=== PATIENT | male | born 1945 | race Caucasian/White ===

== ENCOUNTER 2017-02-23 07:53 | Day surgery (SDC) | payer MEDICARE ==
[~2017-02-23 07:53] MED LIST: IV START KIT ONE; LACTATED RINGERS 1,000 ML ONE
[2017-02-23] MEDS ORDERED: CEFAZOLIN SODIUM 2 GRAM PREMIX 100 ML IV PRN (08:00)
[2017-02-23] MEDS ORDERED: GENTAMICIN SULFATE 320 MG in SODIUM CHLORIDE 0.9% 100 ML IV PRN (08:00)
[2017-02-23] MEDS ORDERED: OPIUM/BELLADONNA ALKALOIDS 1 EACH SUP PR ONE (08:19)
[2017-02-23] MEDS ORDERED: CEFAZOLIN SODIUM 2 GRAM PREMIX 100 ML IV ONE (08:49)
[2017-02-23] MEDS ORDERED: SUCCINYLCHOLINE CHL 20 MG/ML DOSE ONE (08:51)
[2017-02-23] MEDS ORDERED: PROPOFOL 20 ML IV ONE ×2 (08:51→09:56)
[2017-02-23] MEDS ORDERED: IOPAMIDOL 300 (61%) 30 ML SDV ONE (08:52)
[2017-02-23] MEDS ORDERED: ROCURONIUM BROMIDE 10 MG/ML DOSE IV ONE ×2 (08:52→08:53)
[2017-02-23] MEDS ORDERED: LIDOCAINE 1% (PRES FREE) 30 ML VIAL ONE (08:52)
[2017-02-23] MEDS ORDERED: SODIUM CHLORIDE 0.9% 50 ML ONE (08:52)
[2017-02-23] MEDS ORDERED: DEXAMETHASONE SOD PHOS 4 MG/1 ML VIAL ONE (08:53)
[2017-02-23] MEDS ORDERED: ONDANSETRON 4 MG/2ML 2 ML VIAL ONE (08:53)
[2017-02-23] MEDS ORDERED: FENTANYL 100 MCG/2 ML VIAL ONE ×2 (08:55→10:00)
[2017-02-23] MEDS ORDERED: SCOPOLAMINE 1.5 MG/72 HR 1 EACH PATCH TD ONE (09:12)
[2017-02-23] MEDS ORDERED: EPHEDRINE SULFATE UD SYR 25 MG 25 MG/5 ML SYRINGE IV ONE (09:39)
[2017-02-23] MEDS ORDERED: NEOSTIGMINE METHYLSULFATE 1 MG/ML DOSE ONE (09:52)
[2017-02-23] MEDS ORDERED: GLYCOPYRROLATE 0.2 MG/ML 1ML VIAL ONE (09:52)
[2017-02-23] MEDS ORDERED: MEPERIDINE 25 MG/ML SYRINGE IV PRN (10:09)
[2017-02-23] MEDS ORDERED: HYDROMORPHONE HCL 1 MG/ML SYRINGE IV PRN (10:09)
[2017-02-23] MEDS ORDERED: FENTANYL 100 MCG/2 ML VIAL IV PRN (10:09)
[2017-02-23] MEDS ORDERED: ONDANSETRON 4 MG/2ML 2 ML VIAL IV PRN (10:09)
[2017-02-23] MEDS ORDERED: ATROPINE SULFATE 0.4 MG/1 ML VIAL IV PRN (10:09)
[2017-02-23] MEDS ORDERED: LABETALOL HCL 5 MG/ML 20ML VIAL IV PRN (10:09)
[2017-02-23] MEDS ORDERED: PROMETHAZINE HCL 25 MG/ML VIAL IM PRN (10:09)
[2017-02-23] MEDS ORDERED: HYDRALAZINE HCL 20 MG/1 ML VIAL IV PRN (10:09)
[2017-02-23] MEDS ORDERED: NALOXONE HCL 0.4 MG/ML VIAL IV PRN (10:09)
[2017-02-23] MEDS ORDERED: LACTATED RINGERS 1,000 ML IV SCH (10:15)
--- NOTE | 2017-02-23 10:40 | RAD ---
RETROGRADE UROGRAM HISTORY: Retrograde urogram COMPARISONS: CT abdomen pelvis with contrast 09/01/2016 FINDINGS: 3 overhead fluoroscopic images are provided for review. These images demonstrate initial retrograde cannulization and opacification of the left ureter. Under distention of a portion of the ureter is thought to be present given some slight lucency in this region. Differential considerations could include obstructive stone or air bubble. Final images demonstrate double ended pigtail catheter within the left collecting system. Fluoroscopy time: 146.7 seconds IMPRESSION: Retrograde urogram as above. Please see urologist note regarding the procedure for further details.
[2017-02-23] MEDS ORDERED: HYDROCODONE/ACETAMINOPHEN 5/325MG TABLET PO PRN (11:35)
[2017-02-23] MEDS ORDERED: MORPHINE SULFATE 2 MG/ML SYRINGE IV PRN (11:35)
[2017-02-23] MEDS ORDERED: MORPHINE SULFATE 4 MG/ML SYRINGE IV PRN (11:40)
[2017-02-23] MEDS ORDERED: PHENAZOPYRIDINE HCL 200 MG TABLET ONE (11:41)
--- NOTE | 2017-02-23 13:44 | OP ---
NORMAN SINGH [id number] DATE OF OPERATION: February 23, 2017 SURGEON: Rober Matos M.D. LINE CLEANER: None. ANESTHESIA: General. PREOPERATIVE DIAGNOSIS: Left distal ureteral calculus, chronic. POSTOPERATIVE DIAGNOSIS: 1. Left ureteral calculus, chronic. 2. Left distal ureteral stricture. PROCEDURE: 1. CYSTOSCOPY. 2. LEFT RETROGRADE URETEROGRAPHY. 3. LEFT URETEROSCOPY WITH HOLMIUM LASER LITHOTRIPSY. 4. PLACEMENT OF A LEFT URETERAL STENT. SPECIMENS: None. INDICATIONS: The patient is a 71-year-old man with a history of left-sided renal colic presenting the emergency room in late January,. He had at least a 7 mm left-sided calculus identified and he has not passed it since. He is still having episodic left-sided flank pain. He says he has a remote history of what he believes is a right-sided stone passage in the past. FINDINGS: The urethra appeared normal aside from some wide caliber stricture in the proximal portion approaching the bulb. Sphincter zone is intact. The prostatic fossa has previously been resected with some irregular regrowth of prostatic tissue and the bladder neck is open. Ureteral orifices are normally disposed. No focal bladder lesions. The retrograde study on the left revealed a narrow distal ureter above which there was some tortuosity and dilatation of the mid and proximal ureter and the stone was sitting just above the region of narrowing. The narrowing proved to be a significant distal ureteral stricture on the left which was partially dilated in the course of this procedure but was strong enough to resist passage of both introducer sheath and a flexible ureteroscope. The stone itself was fragmented with a semi-rigid ureteroscope, but the accumulation of fragments was just high enough to be out of reach for basketing and we could not get the flexible ureteroscope up to the level where the stones were. PROCEDURE: The patient was identified and brought to the operating room where general anesthesia was induced supine. Then he was placed in a modified lithotomy position with the right leg high and the left leg low. The genital region was prepared and draped sterilely. A 21 Vietnamese rigid cystoscope was introduced with saline as an irrigant. Findings are reported above. A cone tip catheter was applied against the left ureteral orifice and contrast injected. Findings are reported above. Seeing the position of the stone and the narrow, distal ureter, we suspected that stricture might be present because of the location of the stone itself was not typical being below the iliac vessels but a few centimeters above the bladder. A floppy tip wire was successfully passed and negotiated to the level of the kidney. The cystoscope was withdrawn. A semi-rigid ureteroscope was then introduced with saline as an irrigant. We did have difficulty getting past the intramural ureter due to tight narrowing. Therefore, we removed the ureteroscope and passed a 12 Vietnamese dilating ureteral catheter. Even this was quite difficult to pass but we did get it past the most narrow portion and removed it. The semi-rigid ureteroscope was then reintroduced and successfully negotiated past the area of obvious stricturing and up to the level of the stone. A 365 micron fiber was used with the Holmium laser at 0.8 joules and 8 hertz to fragment the stone into portions that appeared to be retrievable. We then switched over to an open-ended stone basket and retrieved the first fragment which was very small and lost along the way out. On returning to the ureter, we found that the remaining stone fragments had been displaced slightly upward into the more dilated portion of the ureter, probably just above the level of the iliac vessels and we were not able to get the scope passed the tight strictured area and up to the level of the stones. Therefore we removed the semi-rigid ureteroscope and introduced an introducer sheath which we could only get through the intramural ureter. We then introduced the flexible ureteroscope with saline as an irrigant. This brought us up to the area of the stricturing but the tightness of the area would not allow passage of the flexible scope. We therefore removed the flexible scope and the introducer sheath and passed the semi-rigid ureteroscope once again, successfully negotiating almost to the level of the vessels but could not just above it to where the stone debris was accumulated. Therefore, we removed the ureteroscope and back-threaded the wire through the cystoscope. Over the wire, we passed a 24 cm 6 Vietnamese Polaris type stent with fluoroscopic guidance. The wire was removed, and the cystoscope withdrawn. The position of the stent was confirmed, and then we left a 20 Vietnamese Gao catheter to gravity drainage for temporary observation of hematuria. It is expected that the patient may be able to pass some of the accumulated stone debris, but at the very minimum we can anticipate some ureteral dilatation potentially facilitating a return to the distal ureter if necessary. Meanwhile, we will anticipate consultation with endourology specialist on the best way to progress in light of the distal stricture which may need further attention. cc: Rober Matos M.D. Aster Wiseman M.D.
[2017-02-23] MEDS ORDERED: PHENAZOPYRIDINE HCL 200 MG TABLET PO SCH (15:00)
== END 2017-02-23 13:23 | disposition home or self-care (01) ==
LOC: SDC 07:53
PROVIDERS: ATTEND Urology
PROC: 0TF78ZZ Fragmentation in Left Ureter, Via Natural or Artificial Opening Endoscopic (ICD-10-PCS; principal; 2017-02-23)
PROC: 0T778DZ Dilation of Left Ureter with Intraluminal Device, Via Natural or Artificial Opening Endoscopic (ICD-10-PCS; 2017-02-23)
DX: N20.1 Calculus of ureter (principal); N13.5 Crossing vessel and stricture of ureter without hydronephrosis
CPT/HCPCS: 74420; 52356; J3010 ×2; J1580; J1100; A9270 ×3; J2001; J2405; J7120; J7050; Q9967; J0690